=== PATIENT | male | born 1950 | race Caucasian/White ===

== ENCOUNTER 2024-12-30 06:36 | Inpatient (IN) | payer MEDICARE, OTHER, SELFPAY ==
--- NOTE | 2024-12-13 12:41 | CM ---
Demographics: confirmed
Living situation: lives with
Support Person Post Operatively:
History of
VN: Yes, not currently on service
SNF: History of [facility]
Outpatient: Patient is requesting home care, has a facility that he is known to.
Has patient purchased required equipment: cane, walker hip kit
PCP: Farhana
Pharmacy: [facility]
Post Operative Discharge Plan: CM encouraged outpatient PT, patient requesting home care.
[2024-12-16 11:21] LABS: Hematocrit 40.5 % (39.0-52.0); Hemoglobin 12.9 g/dL (13.0-18.0); Mean Corp Hgb Conc. 31.9 g/dL (33.0-37.0); Mean Corpuscular Volume 81.8 fL (80.0-94.0); Platelet Count 326 10^3/uL (130-400); Red Cell Dist. Width 14.2 % (11.5-14.5)
[2024-12-16 11:48] LABS: ALT (SGPT) 41 U/L (0-50); AST (SGOT) 37 U/L (17-59); Albumin 4.5 g/dl (3.5-5.0); Alkaline Phosphatase 95 U/L (38-126); Blood Urea Nitrogen 18 mg/dl (9-20); Calcium 11.0 mg/dl (8.4-10.2); Carbon Dioxide 27 mmol/L (22-30); Chloride 105 mmol/L (98-107); Glucose 92 mg/dl (70-99); Potassium 4.7 mmol/L (3.5-5.1); Sodium 139 mmol/L (135-145); Total Protein 7.6 g/dl (6.3-8.2); eGFR > 60.00
[2024-12-16 13:00] LABS: Glycohemoglobin (HgbA1c) 5.9 % (4.0-5.6)
[2024-12-16 14:22] VITALS: BMI 30.4
[2024-12-16 16:00] LABS: Vitamin D, 25-OH*** 43.6 ng/mL (30-80)
[2024-12-16 16:14] LABS: TSH 0.78 uIU/ml (0.47-4.68)
--- NOTE | 2024-12-23 10:53 | CM ---
CM received call from patient stating that he feels he is on too many medications and has multiple questions regarding medications. CM referred him to [facility]opedic [facility].
[2024-12-30] VITALS (21 sets, daily range): BP systolic 111–160; BP diastolic 56–82; PULSE 74–102; O2SAT 97; BMI 30.4
[2024-12-30] MEDS: NORMOSOL-R/PLASMALYTE-A 1000 IV ×2 (07:36→14:21)
[2024-12-30] MEDS: CELEBREX 200 MG PO (07:37)
[2024-12-30] MEDS: TYLENOL 650 MG PO ×3 (07:37→20:15)
[2024-12-30 08:05] LABS: Glucose - Point of Care 111 mg/dl (70-99)
[2024-12-30 10:21] LABS: Glucose - Point of Care 102 mg/dl (70-99)
[2024-12-30] MEDS: DILAUDID 0.5 MG IV (10:23)
[2024-12-30] MEDS: DILAUDID 0.25 MG IV (10:47)
--- NOTE | 2024-12-30 11:50 | W.PN.UPDATE ---
Update Note
Progress Note Update
R hip OA s/p R APPLE w/ Dr Licea 12/30/24
- s/p b/l TKA, >10 y/a, at an outside facility
DVT prophylaxis - ASA, b/l venous foot pumps
HTN - + parameters - monitor BP
Dizziness with history of orthostasis - monitor serial orthostatic VS
- IVF running. Will advise oral hydration
- SBP to Losartan and added Flomax
- Minimize opioids
- TEDs
- Midodrine for SBP <130
L ICA stenosis, 50-69% by carotid ultrasound 10/2024 - start ASA 325 mg daily
Obstructive sleep apnea, intolerant to device - monitor O2
- IS
- Add supplemental O2 HS
Lzz-ckyeouk-pwwpmkkec diabetes, A1c 5.9 - monitor BS
- Continue Metformin
- Add SSI AC and low dose Lantus HS to accommodate for potential post-surgical BS elevations
- Diabetic, carb controlled diet
- Would benefit from Cefadroxil upon d/c
GERD - continue PPI therapy
- Add Pepcid HS while on new post-op pain meds
BPH w/ urinary retention - monitor voids
- Add Flomax. Consider BID dosing
- Bladder scan/straight cath prn
Chronic anemia with questionable myeloproliferative disorder - non-invasive hgb in AM
HLD
Palpitations
Venous insufficiency with varicosities
DDD
Anxiety
Vitamin D deficiency with resultant hypercalcemia
Obesity, BMI of 30.4
[2024-12-30] MEDS: ULTRAM 50 MG PO (12:02)
[2024-12-30] MEDS: GLUCOPHAGE PO (14:16)
[2024-12-30] MEDS: TORADOL 15 MG IV (14:24)
[2024-12-30] MEDS: ZOFRAN 4 MG IV (16:54)
[2024-12-30 17:01] LABS: Glucose - Point of Care 139 mg/dl (70-99)
[2024-12-30] MEDS: ANCEF 5 IV ×2 (17:08→22:15)
[2024-12-30] MEDS: LIDOCAINE 4% PATCH 2 PATCH TOPICAL (17:08)
[2024-12-30] MEDS: ASPIRIN 325 MG PO (17:15)
[2024-12-30] MEDS: FLOMAX PO (17:15)
[2024-12-30] MEDS: TYLENOL PO (17:15)
[2024-12-30] MEDS: GLUCOPHAGE 500 MG PO (17:15)
[2024-12-30] MEDS: PROTONIX 20 MG PO (17:16)
[2024-12-30] MEDS: VITAMIN D3 (cholecalciferol) 25 MCG PO (17:17)
[2024-12-30] MEDS: COLACE 100 MG PO (20:15)
[2024-12-30] MEDS: SENOKOT PO (20:15)
[2024-12-30] MEDS: REMOVE LIDOCAINE PATCH 2 PATCH REMOVE (20:16)
[2024-12-30 21:24] LABS: Glucose - Point of Care 149 mg/dl (70-99)
[2024-12-30] MEDS: NEURONTIN 300 MG PO (22:14)
[2024-12-30] MEDS: PEPCID 20 MG PO (22:15)
[2024-12-30] MEDS: BACTROBAN 2% OINTMENT 1 APPLIC NASAL (22:20)
[2024-12-31] MEDS: TYLENOL PO (00:59)
[2024-12-31 03:35] VITALS: BP 115/70
[2024-12-31] MEDS: TYLENOL 650 MG PO ×3 (04:09→12:42)
[2024-12-31 07:00] VITALS: BP 123/70
[2024-12-31 07:58] LABS: Glucose - Point of Care 143 mg/dl (70-99)
[2024-12-31] MEDS: CELEBREX 200 MG PO (08:53)
[2024-12-31] MEDS: BACTROBAN 2% OINTMENT 1 APPLIC NASAL (08:54)
[2024-12-31] MEDS: FLOMAX 0.4 MG PO (08:54)
[2024-12-31] MEDS: VITAMIN D3 (cholecalciferol) 25 MCG PO (08:54)
[2024-12-31] MEDS: COLACE 100 MG PO (08:54)
[2024-12-31] MEDS: PROTONIX 20 MG PO (08:54)
[2024-12-31] MEDS: SENOKOT 17.2 MG PO (08:54)
[2024-12-31] MEDS: GLUCOPHAGE 500 MG PO (08:54)
[2024-12-31] MEDS: ASPIRIN 325 MG PO (08:54)
[2024-12-31] MEDS: LIDOCAINE 4% PATCH 2 PATCH TOPICAL (08:56)
[2024-12-31] MEDS: ULTRAM 50 MG PO (09:00)
--- NOTE | 2024-12-31 09:26 | CM ---
CM met with patient in room. Patient confirmed outpatient PT for 01/01.
PLAN: Home with and outpatient PT.
--- NOTE | 2024-12-31 09:32 | W.PN.ORTHO ---
Today's Communication / Plan
-
Monitor dizziness after Gabapentin d/c.
Await PT and OT recs.
D/c later today if remaining clinically stable.
Assessment
.
Distal Motor Intact: Yes
Dressing:
Small areas of old bleeding along the incision.
Assessment:
R hip OA s/p R APPLE w/ Dr Licea 12/30/24
- s/p b/l TKA, >10 y/a, at an outside facility
DVT prophylaxis - ASA, b/l venous foot pumps
Dizziness reportedly after Gabapentin - pt notes he's 'medication sensitive' - d/c med
HTN - + parameters - BPs stable
Dizziness with history of orthostasis - serial orthostatic VS WNL
- S/p IVF. Will advise oral hydration
- SBP to Losartan and added Flomax
- Minimize opioids
- TEDs
- Midodrine for SBP <130
L ICA stenosis, 50-69% by carotid ultrasound 10/2024 - start ASA 325 mg daily
Obstructive sleep apnea, intolerant to device - O2 stable on RA
- IS
- Added supplemental O2 HS
Xoi-wrbudxv-lmhuicffx diabetes, A1c 5.9 - BS readings overall stable w/ measures below
- Continue Metformin
- Added SSI AC and low dose Lantus HS to accommodate for potential post-surgical BS elevations during admission
- Diabetic, carb controlled diet
- Would benefit from Cefadroxil upon d/c
GERD - continue PPI therapy
- Added Pepcid HS while on new post-op pain meds
BPH w/ urinary retention - voiding appropriately by POD 1
- Added Flomax. Consider BID dosing
- Bladder scan/straight cath prn
Chronic anemia with questionable myeloproliferative disorder - non-invasive hgb 10.1 POD 1
- Asymptomatic, hemodynamically stable
HLD
Palpitations
Venous insufficiency with varicosities
DDD
Anxiety
Vitamin D deficiency with resultant hypercalcemia
Obesity, BMI of 30.4
Plan
.
Surgery / Date: R APPLE w/ Dr Licea 12/30/24
DVT Prophylaxis: Aspirin
Activity:
Out of bed.
PT/OT
Discharge Plan: Home w/ Outpatient PT (vs home PT/VN)
Subjective
.
.:
Patient resting comfortably in his chair.
Dizziness overnight, thought to be induced by Gabapentin. Will d/c. Orthostatics notably WNL.
Denies any other new complaints.
Anxious - reassurance provided.
Vital Signs and Labs
.
Vital Signs and Labs:
Lab Results
12/16/24 10:57
12/16/24 10:57
Temp Pulse Resp BP Pulse Ox
97.9 F 83 16 115/70 97
12/31/24 07:00 12/31/24 07:00 12/31/24 07:00 12/31/24 08:53 12/31/24 07:00
Non-invasive Hgb result: 10.1
Physical Exam
-
HEENT: No pallor, cyanosis, or jaundice. Throat clear.
NECK: Supple. No JVD.
RESPIRATORY: Lungs clear to auscultation.
CVS: S1, S2 normal. RRR.�
ABDOMEN: Soft, non-tender. No distension.
EXTREMITIES: Expected post-surgical R hip edema. Strength equal, no calf pain with palpation/dorsiflexion. Calves soft.
LETTUCE TRIMMER: AOx3. No focal deficits. pulmonologist/intensivist grossly intact
--- NOTE | 2024-12-31 09:50 | W.DS.TRANS ---
DC Summary - Sales Management Intern
-
Discharge Instructions:
Discharge Diagnosis/Procedures R hip OA s/p R APPLE w/ Dr Licea 12/30/24
Diet Diabetic, Carb Controlled
Additional Diets Adequate hydration, minimize opioids, and wear
TEDs stockings to prevent low blood pressure/
dizziness.
Activity With Walker,As tolerated
Driving Restrictions Not until seen by your Dr
Bathing Restrictions OK to Shower
Other Services PT
Wound Care Dressing to be removed 1 week post-surgery.
Thomson to be removed at 2 week follow-up with
surgeon's office.
Instructions:
Stand-Alone Forms: Total Hip/Knee Replacement D/C
Changes to Home Medications: Yes
Discharge Medications:
DC Medications w/original date entered in [facility]
Benefiber Gummie 2 - 3 gum PO DAILY 12/13/24
Nature's Made Multivitamin 1 tab PO DAILY 12/13/24
cholecalciferol (vitamin D3) 25 mcg (1,000 unit) tablet (Vitamin D3) 25 mcg PO DAILY 12/13/24
coenzyme Q10 100 mg capsule (Co Q-10) 100 mg PO DAILY 12/13/24
Held on 12/31/24. Instructions: Resume on 01/06/25.
lansoprazole 15 mg capsule,delayed release 15 mg PO DAILY 12/13/24
metformin 500 mg tablet 500 mg PO BID 12/13/24
mupirocin 2 % topical ointment 1 applic topical BID infection prevention #1 tube 12/13/24
cefadroxil 500 mg capsule 500 mg PO BID infection prevention #14 caps 12/16/24
celecoxib 200 mg capsule 200 mg PO DAILY Anti-inflammatory #14 caps 12/16/24
famotidine 20 mg tablet 20 mg PO HS GI prophylaxis #30 tabs 12/16/24
ondansetron 4 mg disintegrating tablet 4 mg PO Q6H PRN n/v #20 tabs 12/16/24
tramadol 50 mg tablet 50 mg PO Q6H PRN 1 tab moderate pain, 2 if severe #30 tabs 12/16/24
Saccharomyces boulardii 250 mg capsule (Florastor) 250 mg PO BID #14 caps 12/31/24
acetaminophen 325 mg tablet 650 mg (2 x 325 mg) PO Q4HWA #60 tabs 12/31/24
aspirin 325 mg tablet 325 mg PO DAILY #30 tabs 12/31/24
docusate sodium 100 mg capsule (Colace) 100 mg PO BID #30 caps 12/31/24
lidocaine 4 % topical patch 2 patch topical DAILY #30 ea 12/31/24
losartan 100 mg tablet 100 mg PO DAILY #1 tab 12/31/24
magnesium hydroxide 400 mg/5 mL oral suspension (Milk of Magnesia) 30 ml PO HS PRN constipation #3,780 mL 12/31/24
sennosides 8.6 mg tablet (Magdalena-zeferino) 17.2 mg (2 x 8.6 mg) PO BID #30 tabs 12/31/24
Home Medication Changes
cefadroxil 500 mg capsule 500 mg PO BID infection prevention #14 caps 12/16/24
celecoxib 200 mg capsule 200 mg PO DAILY Anti-inflammatory #14 caps 12/16/24
famotidine 20 mg tablet 20 mg PO HS GI prophylaxis #30 tabs 12/16/24
ondansetron 4 mg disintegrating tablet 4 mg PO Q6H PRN n/v #20 tabs 12/16/24
tramadol 50 mg tablet 50 mg PO Q6H PRN 1 tab moderate pain, 2 if severe #30 tabs 12/16/24
Saccharomyces boulardii 250 mg capsule (Florastor) 250 mg PO BID #14 caps 12/31/24
acetaminophen 325 mg tablet 650 mg (2 x 325 mg) PO Q4HWA #60 tabs 12/31/24
aspirin 325 mg tablet 325 mg PO DAILY #30 tabs 12/31/24
docusate sodium 100 mg capsule (Colace) 100 mg PO BID #30 caps 12/31/24
lidocaine 4 % topical patch 2 patch topical DAILY #30 ea 12/31/24
magnesium hydroxide 400 mg/5 mL oral suspension (Milk of Magnesia) 30 ml PO HS PRN constipation #3,780 mL 12/31/24
sennosides 8.6 mg tablet (Magdalena-zeferino) 17.2 mg (2 x 8.6 mg) PO BID #30 tabs 12/31/24
Pending Results: Yes (Hep C antibody)
[2024-12-31 10:45] VITALS: BP 101/68; PULSE 94; O2SAT 98
[2024-12-31 11:00] VITALS: BP 113/65
[2024-12-31 11:20] LABS: Glucose - Point of Care 149 mg/dl (70-99)
[2024-12-31 11:23] LABS: Hemoglobin 8.5 g/dL (13.0-18.0)
[2024-12-31 12:30] LABS: Hepatitis C Antibody Negative (Negative)
[2024-12-31 12:32] VITALS: BP 113/65; BP 125/64
--- NOTE | 2024-12-31 12:37 | W.PN.UPDATE ---
Update Note
Progress Note Update
Late entry:
Pt was noted to have a visible right hip hematoma post-surgery. Reportedly non-bothersome but noticeable.
Discussed w/ surgeon. H&H drawn revealing hemoglobin of 8.5. Pt has underlying anemia at baseline.
Pt was dizzy after Gabapentin last night but symptoms have since resolved after the d/c of this medication. No other complaints noted.
Pt worked w/ PT and OT without issue. VS remained relatively stable throughout both sessions. No concerns from PT and OT perspective.
Discussed with patient. Will have him repeat a CBC w/o diff on , 01/02, w/ results to Dr. Licea and PCP.
Also discussed elevation of the LE and intermittent ice to help w/ hematoma. Pt verbalizes understanding and is eager to go home today.
== END 2024-12-31 13:25 | disposition home or self-care (01) | DRG 825 ==
LOC: 2 SOUTH 06:36
PROVIDERS: Physician Assistant; ADMITTING PHYSICIAN Specialist; FAMILY PHYSICIAN Family Medicine; REFERRING PHYSICIAN Internal Medicine Cardiovascular Disease
PROC: 0SR904A Replacement of Right Hip Joint with Ceramic on Polyethylene Synthetic Substitute, Uncemented, Open Approach (ICD-10-PCS; 2024-12-30)
DX: D47.1 Chronic myeloproliferative disease (principal); M16.11 Unilateral primary osteoarthritis, right hip; I10 Essential (primary) hypertension; I65.23 Occlusion and stenosis of bilateral carotid arteries; D63.8 Anemia in other chronic diseases classified elsewhere; E78.5 Hyperlipidemia, unspecified; E66.9 Obesity, unspecified; Z68.30 Body mass index [BMI] 30.0-30.9, adult; R00.2 Palpitations; I87.2 Venous insufficiency (chronic) (peripheral); E11.9 Type 2 diabetes mellitus without complications; R42 Dizziness and giddiness; G47.33 Obstructive sleep apnea (adult) (pediatric); N40.1 Benign prostatic hyperplasia with lower urinary tract symptoms; R33.8 Other retention of urine; K21.9 Gastro-esophageal reflux disease without esophagitis; E83.52 Hypercalcemia; Z96.653 Presence of artificial knee joint, bilateral; Z79.899 Other long term (current) drug therapy
CPT/HCPCS: 36415; 73502; 80053; 82306; 82962; 83036; 84443; 85018; 85027; 86803; 87070; 97110; 97116; 97162; 97167; 97530; 97535; C1713; C1776